=== PATIENT | female | born 1990 ===

== ENCOUNTER 2018-06-22 05:25 | Inpatient (IN) | payer OTHER, SELFPAY ==
[2018-06-22 06:01] VITALS: BMI 29.1
[2018-06-22] MEDS: Lactated Ringer's 1,000 ML IV SCH ×3 (06:25→18:09)
[2018-06-22] MEDS ORDERED: Penicillin G Potassium 5 MILL.UNITS VIAL ONE (06:45)
[2018-06-22] MEDS ORDERED: Lidocaine 1% (PF) 30 ML VIAL SC PRN (06:45)
[2018-06-22] MEDS ORDERED: NS w/ Oxytocin 10 units 500 ML IV SCH ×2 (06:45)
[2018-06-22] MEDS ORDERED: Acetaminophen 500 MG TAB PO PRN (06:49)
[2018-06-22] MEDS ORDERED: Promethazine HCl 25 MG/ML VIAL IM PRN ×2 (06:49→09:36)
[2018-06-22] MEDS ORDERED: Butorphanol Tartrate 1 MG/ML VIAL SLOW IVP PRN (06:49)
[2018-06-22] MEDS ORDERED: Penicillin G Potassium 5 MILL.UNITS in Sodium Chloride 0.9% 100 ML IVPB SCH (07:00)
[2018-06-22] MEDS ORDERED: Misoprostol 200 MCG TAB RC PRN (07:00)
[2018-06-22] MEDS ORDERED: Ibuprofen 800 MG TAB PO PRN (07:00)
[2018-06-22 07:06] LABS: Hemoglobin 11.4 g/dL (12.0-16.0); Mean Corpuscular HGB CONC 33.4 g/dL (32.0-36.0); Mean Corpuscular Hemoglobin 29.6 pg (27.0-31.0); Mean Corpuscular Volume 88.8 fL (78.0-98.0); Mean Platelet Volume 10.3 fL (7.4-10.4); Platelet Count 176 thou/uL (130-400); Red Blood Cell (RBC) Count 3.83 mill/uL (4.20-5.40); White Blood Cell (WBC) Count 9.9 thou/uL (4.8-10.8)
[2018-06-22] MEDS ORDERED: DISCONTINUE ALL PREVIOUS NARCOTICS FS SCH (07:30)
[2018-06-22 07:45] LABS: HBSAg Index 0.19 S/CO (0-0.99); Hep B Surf Ag Non-Reactive S/CO (NonReactive); Syphilis Antibody Nonreactive (Nonreactive); Syphilis Antibody Index 0.06 S/CO (<1.00 Non-Reactive)
[2018-06-22] MEDS: Bupivacaine 0.5% 20 ML, fentaNYL Citrate/PF 400 MCG in Sodium Chloride 0.9% 72 ML EPIDURAL SCH ×2 (08:11→15:53)
[2018-06-22] MEDS ORDERED: Eucerin (Mineral Oil/Petrolatum,White) 30 gm Jar TOP PRN (09:36)
[2018-06-22] MEDS ORDERED: ePHEDrine/0.9% NaCl/PF SYRINGE 50 mg/10 ml SLOW IVP PRN (09:36)
[2018-06-22] MEDS ORDERED: Acetaminophen 325 MG TAB PO PRN (09:36)
[2018-06-22] MEDS ORDERED: Ondansetron HCl/PF 4 MG/2 ML Vial IVP PRN (09:36)
[2018-06-22] MEDS ORDERED: Naloxone HCl 0.4 mg/ml Vial IVP PRN ×2 (09:36)
[2018-06-22] MEDS ORDERED: diphenhydrAMINE 50 MG/ML VIAL IVP PRN (09:36)
[2018-06-22] MEDS ORDERED: Lactated Ringer's 500 ML IV PRN (09:36)
[2018-06-22] MEDS ORDERED: fentaNYL Citrate/PF 400 MCG, Bupivacaine 0.5% 20 ML in Sodium Chloride 0.9% 72 ML EPIDURAL SCH (09:45)
[2018-06-22] MEDS ORDERED: Communication Order-Pharmacy FS SCH (09:45)
[2018-06-22] MEDS: Ondansetron HCl/PF 4 MG/2 ML Vial IVP PRN ×2 (10:31→17:19)
[2018-06-22] MEDS: Penicillin G 2.5 MILL.units 50 ML IVPB SCH ×3 (11:30→19:09)
[2018-06-22] MEDS ORDERED: Acetaminophen 1,000 MG in Premix Bag 1 BAG IVPB SCH (20:15)
[2018-06-22] MEDS: NS / Oxytocin 40 units/1000ml 1,000 ML ONE ×2 (21:45→23:33)
[2018-06-22] MEDS ORDERED: NS / Oxytocin 40 units/1000ml 1,000 ML ONE (23:31)
[2018-06-23] MEDS ORDERED: Milk Of Magnesia 30 ML UDCUP PO PRN (01:01)
[2018-06-23] MEDS ORDERED: Bisacodyl 10 MG SUPP PR PRN (01:01)
[2018-06-23] MEDS ORDERED: Ondansetron HCl/PF 4 MG/2 ML Vial IVP PRN (01:01)
[2018-06-23] MEDS ORDERED: NS / Oxytocin 40 units/1000ml 1,000 ML IV SCH (01:01)
[2018-06-23] MEDS ORDERED: Lanolin Ointment 7 GM TUBE TOP PRN (01:01)
[2018-06-23] MEDS ORDERED: Adacel (T-DAP) 0.5 ML VIAL IM ONE (01:01)
[2018-06-23] MEDS ORDERED: Benzocaine/Menthol 20-0.5% 60 ML CAN TOP PRN (01:01)
--- NOTE | 2018-06-23 01:52 | OP ---
DELIVERY NOTE DATE OF ENCOUNTER: 06/22/2018 The patient delivered a male at 38 weeks and 6 days on 06/22/2018 at 21:39 hours by an uncompl icated term spontaneous vaginal delivery. Apgars are 9 and 9. Weight is unavailable at time of dict ation. Placenta delivered spontaneously followed by Pitocin infusion. ESTIMATED BLOOD LOSS: 200 mL. QUANTITATIVE BLOOD LOSS: Not available at time of dictation. LACERATIONS: None. COUNT: Correct. DELIVERING PHYSICIAN: Dr. Dante Mcclendon. Mother and baby are stable in the immediate .
[2018-06-23] MEDS: Lactated Ringer's 1,000 ML IV SCH (02:13)
[2018-06-23] MEDS: Penicillin G 2.5 MILL.units 50 ML IVPB SCH (02:13)
[2018-06-23 05:53] LABS: Hemoglobin 11.3 g/dL (12.0-16.0); Mean Corpuscular Hemoglobin 30.5 pg (27.0-31.0); Mean Corpuscular Volume 89.7 fL (78.0-98.0); Mean Platelet Volume 9.4 fL (7.4-10.4); Platelet Count 159 thou/uL (130-400); RBC Distribution Width 12.1 % (11.5-14.5); Red Blood Cell (RBC) Count 3.69 mill/uL (4.20-5.40); White Blood Cell (WBC) Count 18.4 thou/uL (4.8-10.8)
[2018-06-23] MEDS: Ibuprofen 800 MG TAB PO SCH ×3 (06:12→21:50)
[2018-06-23] MEDS: Ferrous Sulfate 325 MG TAB PO SCH ×2 (09:19→17:39)
[2018-06-23] MEDS: Docusate Calcium (SURFAK) 240 MG CAP PO SCH ×2 (09:22→21:50)
[2018-06-23] MEDS: Prenatal Vitamin 1 TAB PO SCH (09:22)
--- NOTE | 2018-06-23 09:34 | PRG ---
DATE OF SERVICE: 06/23/2018 SUBJECTIVE: The patient is day 1, status post an uncomplicated term spontaneous vaginal d elihortenciay. The patient reports today that she is tolerating p.o., voiding on her own, having decreased lochia and good pain control. PHYSICAL EXAMINATION: VITAL SIGNS: Most recent vital signs, blood pressure is 116/66, temperature 97.7, pulse is 75, respi ratory rate of 18. GENERAL: She appears to be in no acute distress. She is alert and oriented, cooperative and pleasan t to interact with. Fundus is firm. EXTREMITIES: Nontender, nonedematous. LABORATORY DATA: Her post-delivery hemoglobin is 11.3, hematocrit 33.1 and platelets 159,000. ASSESSMENT AND PLAN: The patient is a 28-year-old female day 1, status post a term sponta neous vaginal delivery. Anticipate discharge tomorrow. Of note, Dr. Garcia will be coming back to t service.
[2018-06-23] MEDS ORDERED: Bupivacaine 0.25% HCL 30 ML VIAL ONE (11:11)
[2018-06-24] MEDS: Ibuprofen 800 MG TAB PO SCH ×2 (05:30→14:28)
--- NOTE | 2018-06-24 07:53 | PDOC.PP ---
Post Progress Note Post Day #: 2 PO intake tolerated: yes Flatus: yes Ambulation: yes Vital Signs (12 hours) Temp Pulse Resp BP 06/23/18 20:15 98.4 F 82 18 120/64 Weight Weight 175 lb - Physical Examination General: NAD Cardiovascular: no m/r/g, RRR Respiratory: clear to auscultation bilaterally, non-labored breathing Abdominal: + bowel sounds, lochia, no distention, appropriately TTP Result Diagrams: 06/23/18 05:43 Additional Labs: Post Labs Blood Type A POSITIVE 06/22/18 06:54 Hep Bs Antigen Non-Reactive S/CO (NonReactive) 06/22/18 06:54 - Assessment/Plan doing well post day 2-discharge home. f/.u in 6 weeks.
[2018-06-24] MEDS: Prenatal Vitamin 1 TAB PO SCH (09:25)
[2018-06-24] MEDS: Docusate Calcium (SURFAK) 240 MG CAP PO SCH (09:25)
[2018-06-24] MEDS: Ferrous Sulfate 325 MG TAB PO SCH (09:36)
[2018-06-24 11:18] VITALS: BP 121/59; TEMP 98
== END 2018-06-24 15:15 | disposition home or self-care (01) | DRG 775 ==
LOC: L&D/OP 05:25 → L&D 06:05 → 3SW 06-23 00:25
PROVIDERS: ADMIT Obstetrics & Gynecology; ATTEND Obstetrics & Gynecology
PROC: 10E0XZZ Delivery of Products of Conception, External Approach (ICD-10-PCS; principal; 2018-06-22)
DX: O80 Encounter for full-term uncomplicated delivery (principal); Z3A.38 38 weeks gestation of pregnancy; Z37.0 Single live birth
CPT/HCPCS: 51701; 51702; 85027; 86780; 86850; 86900; 86901; 87340; 99285; J0131; J0595; J2001; J2405; J2540; J3010; J3490; J7050; S0020